=== PATIENT | female | born 1970 | race Caucasian/White ===

== ENCOUNTER 2017-02-09 20:45 | Emergency (ER) | payer BC ==
[~2017-02-09] VITALS: Ht 162.6 cm; Wt 78.9 kg
[2017-02-09 20:50] VITALS: BP 157/90
[2017-02-09] MEDS ORDERED: IBUP800T19 PO (20:59)
[2017-02-09] MEDS ORDERED: ONDANSETRON ODT 4 MG TAB.RAPDIS PO ONE (21:45)
[2017-02-09] MEDS ORDERED: START PACK - traMADol 1 STARTPACK TABLET PO ONE (21:45)
[2017-02-09] MEDS ORDERED: MORPHINE SULFATE 10 MG/ML SYRINGE. IM ONE (21:45)
[2017-02-09] MEDS ORDERED: AMOXICILLIN 500 MG CAPSULE PO ONE (21:45)
--- NOTE | 2017-02-10 00:45 | ED.ADGEN ---
Past History Past Medical History: Gallstones, Other Past Surgical History: Cholecystectomy, Hysterectomy, Tonsillectomy Alcohol Use: Occasionally Drug Use: None Adult General Chief Complaint Chief Complaint Dental pain HPI HPI Patient is a 6-year-old female presents with right upper anterior dental pain after cracking I was some tooth during dinner several hours ago. Patient rates pain 10 out of 10 and poorly controlled with ibuprofen. No other symptoms or complaints Review of Systems Review of Systems Review symptoms as per history of present illness Current Medications Current Medications Current Medications Medications (Trade) Dose Ordered Sig/Edin Start Time Stop Time Status Last Admin Dose Admin Amoxicillin (Amoxil) 500 mg 1X ONCE 02/09/17 21:45 02/09/17 21:46 DC 02/09/17 21:45 500 MG Morphine Sulfate (Morphine 10mg Syringe) 10 mg 1X ONCE 02/09/17 21:45 02/09/17 21:46 DC 02/09/17 21:45 10 MG Ondansetron HCl (Zofran Odt) 4 mg 1X ONCE 02/09/17 21:45 02/09/17 21:46 DC 02/09/17 21:45 4 MG Tramadol HCl (Starter Pack - Ultram) 1 startpack 1X ONCE 02/09/17 21:45 02/09/17 21:46 DC 02/09/17 21:45 1 STARTPACK Allergies Allergies Allergies Coded Allergies Type Severity Reaction Last Updated Verified No Known Drug Allergies 02/09/17 No Physical Exam Physical Exam Constitutional: Well developed, well nourished, no acute distress, non-toxic appearance. [] HENT: Normocephalic, atraumatic, bilateral external ears normal, oropharynx moist, right posterior was some tooth fracture. No bleeding or soft tissue swelling Eyes: PERRLA, EOMI, conjunctiva normal, no discharge. [] Neck: Normal range of motion, no tenderness, supple, no stridor. [] Cardiovascular:Heart rate regular rhythm, no murmur [] Lungs & Thorax: Bilateral breath sounds clear to auscultation [] Abdomen: Bowel sounds normal, soft, no tenderness, no masses, no pulsatile masses. [] Skin: Warm, dry, no erythema, no rash. [] Back: No tenderness, no CVA tenderness. [] Extremities: No tenderness, no cyanosis, no clubbing, ROM intact, no edema. [] Neurologic: Alert and oriented X 3, normal motor function, normal sensory function, no focal deficits noted. [] Psychologic: Affect normal, judgement normal, mood normal. [] Current Patient Data Vital Signs Vital Signs Date Time Temp Pulse Resp B/P (MAP) Pulse Ox O2 Delivery O2 Flow Rate FiO2 02/09/17 20:50 98.4 85 20 98 Room Air EKG EKG [] Radiology/Procedures Radiology/Procedures [] Course & Med Decision Making Course & Med Decision Making Pertinent Labs and Imaging studies reviewed. (See chart for details) [Pain addressed, first dose of antibiotics given. Patient with plans to follow- up with dentist early next week.] Final Impression Final Impression 1. [Dental pain] 2. Dental fracture Problems: Dragon Disclaimer Dragon Disclaimer This electronic medical record was generated, in whole or in part, using a voice recognition dictation system. FACUNDO RAHMAN DO February 10, 2017 00:45
== END 2017-02-09 21:37 | disposition home or self-care (01) ==
LOC: ER 20:45
DX: S02.5XXA Fracture of tooth (traumatic), initial encounter for closed fracture (principal); X58.XXXA Exposure to other specified factors, initial encounter; Y93.89 Activity, other specified; Y99.8 Other external cause status; Y92.89 Other specified places as the place of occurrence of the external cause
CPT/HCPCS: 96372; 99284; J2270; Q0162

== ENCOUNTER 2019-04-19 16:47 | Emergency (ER) | payer BC ==
[~2019-04-19] VITALS: Ht 162.6 cm; Wt 81.6 kg
[~2019-04-19 16:47] MED LIST: IBUP800T19 PO
[2019-04-19] MEDS ORDERED: ORPHENADRINE CITRATE 60 MG/2 ML VIAL. IM ONE (17:15)
[2019-04-19] MEDS ORDERED: KETOROLAC 60 MG/2 ML VIAL. IM ONE (17:15)
[2019-04-19] MEDS ORDERED: IOHEXOL 350 MG/ML 100 ML VIAL. IV ONE (17:30)
[2019-04-19] MEDS ORDERED: KETOROLAC 30 MG/ML VIAL. IV ONE (17:45)
--- NOTE | 2019-04-19 18:04 | PHYS DOC ---
Past History Past Medical History: Gallstones, Hypothyroid, TIA, Other (LONNIE JOE DO) Past Surgical History: Cholecystectomy, Hysterectomy, Tonsillectomy, Other (LONNIE JOE DO) Alcohol Use: Occasionally Drug Use: None (LONNIE JOE DO) Adult General Chief Complaint Chief Complaint: Neck Pain HPI HPI Patient is a 48-year-old female who has had a several day history of severe neck pain. She states is primarily on the left side of her neck rating up into her head and down into her left trapezius. She states today the pain in her neck is a little worse and now she is hearing a whooshing sound in her ear. She states her ear feels full. She states she has 7 kids and 13 grandkids and has some stress associated with that. Rest and ibuprofen have not helped her neck pain. She states this made worse with any movement.[] (LONNIE JOE DO) Review of Systems Review of Systems Constitutional: Denies fever or chills [] Eyes: Denies change in visual acuity, redness, or eye pain [] HENT: Denies nasal congestion or sore throat [] Respiratory: Denies cough or shortness of breath [] Cardiovascular: No additional information not addressed in HPI [] GI: Denies abdominal pain, nausea, vomiting, bloody stools or diarrhea [] : Denies dysuria or hematuria [] Musculoskeletal: Denies back pain or joint pain [] Integument: Denies rash or skin lesions [] Neurologic: Denies headache, focal weakness or sensory changes [] Endocrine: Denies polyuria or polydipsia [] All other systems were reviewed and found to be within normal limits, except as documented in this note. (LONNIE JOE DO) Current Medications Current Medications Current Medications Medications (Trade) Dose Ordered Sig/Edin Start Time Stop Time Status Last Admin Dose Admin Iohexol (Omnipaque 350 Mg/ml) 100 ml 1X ONCE 04/19/19 17:30 04/19/19 17:31 DC 04/19/19 17:43 100 ML Ketorolac Tromethamine (Toradol 30mg Vial) 30 mg 1X ONCE 04/19/19 17:45 04/19/19 17:46 DC Ketorolac Tromethamine (Toradol Im) 60 mg 1X ONCE 04/19/19 17:15 04/19/19 17:20 DC Orphenadrine Citrate (Norflex) 60 mg 1X ONCE 04/19/19 17:15 04/19/19 17:20 DC (LONNIE JOE DO) Allergies Allergies Allergies Coded Allergies Type Severity Reaction Last Updated Verified No Known Drug Allergies 02/09/17 No (LONNIE JOE DO) Physical Exam Physical Exam Constitutional: Well developed, well nourished, mild to moderate distress, non- toxic appearance. [] HENT: TMs appear normal[] Eyes: PERRLA, EOMI, conjunctiva normal, no discharge. [] Neck: Normal range of motion, no tenderness, supple, no stridor. [] Cardiovascular:Heart rate regular rhythm, no murmur [] Lungs & Thorax: Bilateral breath sounds clear to auscultation [] Abdomen: Bowel sounds normal, soft, no tenderness, no masses, no pulsatile masses. [] Skin: Warm, dry, no erythema, no rash. [] Back: She has left cervical spine paraspinal muscle spasm that radiates down into her trapezius with multiple trigger points at that location as well. She has restriction to side bending right and flexion.. [] Extremities: No tenderness, no cyanosis, no clubbing, ROM intact, no edema. [] Neurologic: Alert and oriented X 3, normal motor function, normal sensory function, no focal deficits noted. [] Psychologic: Anxious. [] (LONNIE JOE DO) Current Patient Data Vital Signs Vital Signs Date Time Temp Pulse Resp B/P (MAP) Pulse Ox O2 Delivery O2 Flow Rate FiO2 04/19/19 17:00 98.8 97 20 98 Room Air (LONNIE JOE DO) EKG EKG [] (LONNIE JOE DO) Radiology/Procedures Radiology/Procedures [] Impressions: REASON: Severe headache, blurred vision with light sensitivity, nausea PROCEDURE: CT ANGIOGRAPHY HEAD AND NECK Exam: CTA head and neck INDICATION: Severe headache, blurred vision TECHNIQUE: Sequential axial images through the head and neck obtained following the administration of 70 mL of Isovue 370 IV contrast. Sagittal and coronal reformatted images were reconstructed from the axial data and reviewed. Comparisons: None FINDINGS: CTA NECK: Visualized portions of the thoracic aorta are normal. There is standard three-vessel aortic arch anatomy. Right common carotid artery is patent without evidence of stenosis, occlusion or aneurysm. Mild calcified atherosclerotic plaque at the origin of the right internal carotid artery without significant stenosis. Otherwise, cervical segment of the right internal carotid artery is patent without evidence of stenosis, occlusion or aneurysm. Left common carotid artery has mild noncalcified atherosclerotic plaque at the distal aspect without significant stenosis. Cervical segment of the left internal carotid artery is patent without evidence of stenosis, occlusion or aneurysm. Right vertebral artery is patent without evidence of stenosis, occlusion or aneurysm. Left vertebral artery is patent without evidence of stenosis, occlusion or aneurysm. Postsurgical changes of right hemithyroidectomy. Otherwise, visualized cervical soft tissues are unremarkable. CTA HEAD: Mild calcified atherosclerotic plaque at the cavernous segment of the right internal carotid artery without significant stenosis. Right MCA is patent. Right TAQUERIA is patent. Mild calcified atherosclerotic plaque at the cavernous segment of the left internal carotid artery without significant stenosis. Left MCA is patent. Left TAQUERIA is patent. Basilar artery is patent without evidence of stenosis, occlusion or aneurysm. Major branch vessels arising off the basilar artery are patent proximally. cardiothoracic icu rn are patent bilaterally. Evaluation of the intracranial structures limited secondary to postcontrast technique. No large vascular territory infarction or hemorrhage or mass effect. Ventricular system and basal cisterns are well maintained. IMPRESSION: 1. Minimal calcified atherosclerotic plaque at the origin of the right internal carotid artery without significant stenosis. 2. Minimal noncalcified atherosclerotic plaque at the distal left common carotid artery without significant stenosis. 3. Minimal calcified atherosclerotic plaque at the cavernous segment of the internal carotid arteries bilaterally. (LONNIE JOE DO) Radiology/[place] [address] IMAGING REPORT Signed PATIENT: CATRINA VIRAMONTES ACCOUNT: [id number] : 1970 LOCATION: ER AGE: 48 SEX: F EXAM STATUS: REG ER ORD. PHYSICIAN: LONNIE JOE DO REASON: Severe headache, blurred vision with light sensitivity, nausea PROCEDURE: CT ANGIOGRAPHY HEAD AND NECK Exam: CTA head and neck INDICATION: Severe headache, blurred vision TECHNIQUE: Sequential axial images through the head and neck obtained following the administration of 70 mL of Isovue 370 IV contrast. Sagittal and coronal reformatted images were reconstructed from the axial data and reviewed. Comparisons: None FINDINGS: CTA NECK: Visualized portions of the thoracic aorta are normal. There is standard three-vessel aortic arch anatomy. Right common carotid artery is patent without evidence of stenosis, occlusion or aneurysm. Mild calcified atherosclerotic plaque at the origin of the right internal carotid artery without significant stenosis. Otherwise, cervical segment of the right internal carotid artery is patent without evidence of stenosis, occlusion or aneurysm. Left common carotid artery has mild noncalcified atherosclerotic plaque at the distal aspect without significant stenosis. Cervical segment of the left internal carotid artery is patent without evidence of stenosis, occlusion or aneurysm. Right vertebral artery is patent without evidence of stenosis, occlusion or aneurysm. Left vertebral artery is patent without evidence of stenosis, occlusion or aneurysm. Postsurgical changes of right hemithyroidectomy. Otherwise, visualized cervical soft tissues are unremarkable. CTA HEAD: Mild calcified atherosclerotic plaque at the cavernous segment of the right internal carotid artery without significant stenosis. Right MCA is patent. Right TAQUERIA is patent. Mild calcified atherosclerotic plaque at the cavernous segment of the left internal carotid artery without significant stenosis. Left MCA is patent. Left TAQUERIA is patent. Basilar artery is patent without evidence of stenosis, occlusion or aneurysm. Major branch vessels arising off the basilar artery are patent proximally. cardiothoracic icu rn are patent bilaterally. Evaluation of the intracranial structures limited secondary to postcontrast technique. No large vascular territory infarction or hemorrhage or mass effect. Ventricular system and basal cisterns are well maintained. IMPRESSION: 1. Minimal calcified atherosclerotic plaque at the origin of the right internal carotid artery without significant stenosis. 2. Minimal noncalcified atherosclerotic plaque at the distal left common carotid artery without significant stenosis. 3. Minimal calcified atherosclerotic plaque at the cavernous segment of the internal carotid arteries bilaterally. Exposure: One or more of the following in the visualized dose reduction techniques were utilized for this examination: 1. Automated exposure control 2. Adjustment of the MA and/or KV according to patient size 3. Use of iterative of reconstructive technique Electronically signed by: Vannessa Frederick MD (04/19/2019 6:13 PM) [facility] DICTATED AND SIGNED BY: VANNESSA FREDERICK MD DATE: 04/19/19 181 CC: LONNIE JOE DO; ALVARADO CARDOSO MD ~ (DASH VALDES MD) Course & Med Decision Making Course & Med Decision Making Pertinent Labs and Imaging studies reviewed. (See chart for details) [ED course: Evaluation reveals a 48-year-old female with likely cervical muscle strain however the symptoms that radiated up into her head and that noises that she's hearing in her ear cause concern for possible vertebral artery dissection. We'll go ahead and check a CTA of her head and neck to be sure that is not what were dealing with. I do not believe her symptoms have any relation to an ischemic stroke. I will turn the patient over to Dr. Dash Valdes to follow- up on the results of the scan. At 1800] (LONNIE JOE DO) Course & Med Decision Making Re-exam, pain appears to be localized to trapezius. Distal neurovascular intact.. Pt. declines labs or further evaluation. Pt. encourage to return if any concerns. Must follow up. (DASH VALDES MD) Dragon Disclaimer Dragon Disclaimer This electronic medical record was generated, in whole or in part, using a voice recognition dictation system. (LONNIE JOE DO) Departure Departure: Impression: Primary Impression: Acute cervical sprain Additional Impression: Hypertension Disposition: 01 HOME, SELF-CARE Condition: STABLE Referrals: ALVARADO CARDOSO MD (PCP) Scripts Cyclobenzaprine Hcl (CYCLOBENZAPRINE HCL) 10 Mg Tablet 10 MG PO TID PRN PRN for spasm, #30 TAB Prov: DASH VALDES MD 04/19/19 Hydrocodone/Ibuprofen (HYDROCODONE-IBUPROFEN 7.5-200 ) 1 Each Tablet 1 TAB PO PRN Q6HRS PRN for PAIN, #30 TAB 0 Refills Prov: DASH VALDES MD 04/19/19 Discharge Summary Visit Information Final Diagnosis Problems Medical Problems: (1) Acute cervical sprain Status: Acute (2) Hypertension Status: Acute (DASH VALDES MD) Final Diagnosis Problems Medical Problems: (1) Acute cervical sprain Status: Acute (2) Hypertension Status: Acute (LONNIE JOE DO) Brief Hospital Course Allergies Allergies Coded Allergies Type Severity Reaction Last Updated Verified No Known Drug Allergies 02/09/17 No Vital Signs Vital Signs Date Time Temp Pulse Resp B/P (MAP) Pulse Ox O2 Delivery O2 Flow Rate FiO2 04/19/19 19:31 72 20 161/68 (99) 100 Room Air 04/19/19 17:00 98.8 Brief Hospital Course Ms. Viramontes is a 48 old female who presented with Lt trapezius pain. (DASH VALDES MD) Allergies Allergies Coded Allergies Type Severity Reaction Last Updated Verified No Known Drug Allergies 02/09/17 No Vital Signs Vital Signs Date Time Temp Pulse Resp B/P (MAP) Pulse Ox O2 Delivery O2 Flow Rate FiO2 04/19/19 19:31 72 20 161/68 (99) 100 Room Air 04/19/19 17:00 98.8 Brief Hospital Course Ms. Viramontes is a 48 old [sex] who presented with [ ] (LONNIE JOE DO) Discharge Information Condition at Discharge: Improved, Stable Disposition/Orders: D/C to Home Dischare Medications Current Medications Ketorolac Tromethamine (Toradol Im) 60 mg 1X ONCE IM ; Start 04/19/19 at 17:15; Stop 04/19/19 at 17:20; Status DC Orphenadrine Citrate (Norflex) 60 mg 1X ONCE IM Last administered on 04/19/19at 18:25; Start 04/19/19 at 17:15; Stop 04/19/19 at 17:20; Status DC Iohexol (Omnipaque 350 Mg/ml) 100 ml 1X ONCE IV Last administered on 04/19/19at 17:43; Start 04/19/19 at 17:30; Stop 04/19/19 at 17:31; Status DC Ketorolac Tromethamine (Toradol 30mg Vial) 30 mg 1X ONCE IV Last administered on 04/19/19at 18:24; Start 04/19/19 at 17:45; Stop 04/19/19 at 17:46; Status DC Active Scripts Active Cyclobenzaprine Hcl 10 Mg Tablet 10 Mg PO TID PRN PRN Hydrocodone-Ibuprofen 7.5-200 (Hydrocodone/Ibuprofen) 1 Each Tablet 1 Tab PO PRN Q6HRS PRN Reported Ibuprofen 800 Mg Tablet 800 Mg PO PRN (DASH VALDES MD) Dischare Medications Current Medications Ketorolac Tromethamine (Toradol Im) 60 mg 1X ONCE IM ; Start 04/19/19 at 17:15; Stop 04/19/19 at 17:20; Status DC Orphenadrine Citrate (Norflex) 60 mg 1X ONCE IM Last administered on 04/19/19at 18:25; Start 04/19/19 at 17:15; Stop 04/19/19 at 17:20; Status DC Iohexol (Omnipaque 350 Mg/ml) 100 ml 1X ONCE IV Last administered on 04/19/19at 17:43; Start 04/19/19 at 17:30; Stop 04/19/19 at 17:31; Status DC Ketorolac Tromethamine (Toradol 30mg Vial) 30 mg 1X ONCE IV Last administered on 04/19/19at 18:24; Start 04/19/19 at 17:45; Stop 04/19/19 at 17:46; Status DC Active Scripts Active Cyclobenzaprine Hcl 10 Mg Tablet 10 Mg PO TID PRN PRN Hydrocodone-Ibuprofen 7.5-200 (Hydrocodone/Ibuprofen) 1 Each Tablet 1 Tab PO PRN Q6HRS PRN Reported Ibuprofen 800 Mg Tablet 800 Mg PO PRN (LONNIE JOE DO) Dragon Disclaimer This chart was dictated in whole or in part using Voice Recognition software in a busy, high-work load, and often noisy Emergency Department environment. It may contain unintended and wholly unrecognized errors or omissions. (DASH VALDES MD) Dragon Disclaimer This chart was dictated in whole or in part using Voice Recognition software in a busy, high-work load, and often noisy Emergency Department environment. It may contain unintended and wholly unrecognized errors or omissions. (LONNIE JOE DO) Problem Qualifiers Primary Impression: Acute cervical sprain Encounter type: initial encounter Qualified Codes: S13.9XXA - Sprain of joints and ligaments of unspecified parts of neck, initial encounter Additional Impression: Hypertension Hypertension type: essential hypertension Qualified Codes: I10 - Essential (primary) hypertension LONNIE JOE DO Apr 19, 2019 18:04 DASH VALDES MD Apr 19, 2019 18:57
--- NOTE | 2019-04-19 18:16 | RAD ---
Exam: CTA head and neck INDICATION: Severe headache, blurred vision TECHNIQUE: Sequential axial images through the head and neck obtained following the administration of 70 mL of Isovue 370 IV contrast. Sagittal and coronal reformatted images were reconstructed from the axial data and reviewed. Comparisons: None FINDINGS: CTA NECK: Visualized portions of the thoracic aorta are normal. There is standard three-vessel aortic arch anatomy. Right common carotid artery is patent without evidence of stenosis, occlusion or aneurysm. Mild calcified atherosclerotic plaque at the origin of the right internal carotid artery without significant stenosis. Otherwise, cervical segment of the right internal carotid artery is patent without evidence of stenosis, occlusion or aneurysm. Left common carotid artery has mild noncalcified atherosclerotic plaque at the distal aspect without significant stenosis. Cervical segment of the left internal carotid artery is patent without evidence of stenosis, occlusion or aneurysm. Right vertebral artery is patent without evidence of stenosis, occlusion or aneurysm. Left vertebral artery is patent without evidence of stenosis, occlusion or aneurysm. Postsurgical changes of right hemithyroidectomy. Otherwise, visualized cervical soft tissues are unremarkable. CTA HEAD: Mild calcified atherosclerotic plaque at the cavernous segment of the right internal carotid artery without significant stenosis. Right MCA is patent. Right TAQUERIA is patent. Mild calcified atherosclerotic plaque at the cavernous segment of the left internal carotid artery without significant stenosis. Left MCA is patent. Left TAQUERIA is patent. Basilar artery is patent without evidence of stenosis, occlusion or aneurysm. Major branch vessels arising off the basilar artery are patent proximally. general foundry worker are patent bilaterally. Evaluation of the intracranial structures limited secondary to postcontrast technique. No large vascular territory infarction or hemorrhage or mass effect. Ventricular system and basal cisterns are well maintained. IMPRESSION: 1. Minimal calcified atherosclerotic plaque at the origin of the right internal carotid artery without significant stenosis. 2. Minimal noncalcified atherosclerotic plaque at the distal left common carotid artery without significant stenosis. 3. Minimal calcified atherosclerotic plaque at the cavernous segment of the internal carotid arteries bilaterally. Exposure: One or more of the following in the visualized dose reduction techniques were utilized for this examination: 1. Automated exposure control 2. Adjustment of the MA and/or KV according to patient size 3. Use of iterative of reconstructive technique Electronically signed by: Vannessa Parish MD (04/19/2019 6:13 PM) [facility]
[2019-04-19] MEDS ORDERED: CYCL-331 PO (18:59)
[2019-04-19] MEDS ORDERED: HYDR-1179 PO (18:59)
[2019-04-19 19:31] VITALS: BP 161/68
== END 2019-04-19 20:20 | disposition home or self-care (01) ==
LOC: ER 16:47
DX: S13.4XXA Sprain of ligaments of cervical spine, initial encounter (principal); R51 Headache; I10 Essential (primary) hypertension; E03.9 Hypothyroidism, unspecified; Z86.73 Personal history of transient ischemic attack (TIA), and cerebral infarction without residual deficits; X58.XXXA Exposure to other specified factors, initial encounter; Y93.89 Activity, other specified; Y92.89 Other specified places as the place of occurrence of the external cause; Y99.8 Other external cause status
CPT/HCPCS: 70496; 70498; 96372; 96374; 99284; J1885; J2360; Q9967

== ENCOUNTER 2019-05-05 14:16 | Emergency (ER) | payer BC ==
[~2019-05-05] VITALS: Ht 162.6 cm; Wt 87.0 kg
[~2019-05-05 14:16] MED LIST changes: +CYCL-331 PO; +HYDR-1179 PO
[2019-05-05] MEDS ORDERED: ASPI-612 PO (14:34)
[2019-05-05] MEDS ORDERED: IV NORMAL SALINE 1,000ML 1,000 ML IV ONE (15:00)
--- NOTE | 2019-05-05 15:06 | PHYS DOC ---
Past History Past Medical History: TIA, Other (BEN ARREDONDO DO) Past Surgical History: Cholecystectomy, Hysterectomy, Tonsillectomy, Other (BEN ARREDONDO DO) Alcohol Use: Occasionally Drug Use: None (BEN ARREDONDO DO) Adult General Chief Complaint Chief Complaint: DIZZY/LIGHT HEADED HPI HPI Patient is a 48-year-old female who has been feeling dizzy for several months intermittently, worse over the past 3 days. Feels like "my equilibrium is off." No worsening with exertion. No head trauma. No weakness in the arms or legs. She notes some subjective fever and chills, has not taken her temperature at home. No nausea or vomiting. She feels a fullness in the anterior portion of her neck. She had a right upper dental pain approximately 3 weeks ago without significant improvement. She was not started on any antibiotics at that time. She has not followed up with anyone since then. Nothing seems to make any of these symptoms better or worse. She has a history of a TIA and is currently on a baby aspirin a day.[] (BEN ARREDONDO DO) Review of Systems Review of Systems Constitutional: See history of present illness[] Eyes: Denies change in visual acuity, redness, or eye pain [] HENT: Denies nasal congestion or sore throat [] Respiratory: Denies cough or shortness of breath [] Cardiovascular: No additional information not addressed in HPI [] GI: Denies abdominal pain, nausea, vomiting, bloody stools or diarrhea [] : Denies dysuria or hematuria [] Musculoskeletal: Denies back pain or joint pain [] Integument: Denies rash or skin lesions [] Neurologic: Denies headache, focal weakness or sensory changes [] Endocrine: Denies polyuria or polydipsia [] All other systems were reviewed and found to be within normal limits, except as documented in this note. (BEN ARREDONDO DO) Allergies Allergies Allergies Coded Allergies Type Severity Reaction Last Updated Verified No Known Drug Allergies 05/05/19 No (BEN ARREDONDO DO) Physical Exam Physical Exam Constitutional: Well developed, well nourished, no acute distress, non-toxic appearance. [] HENT: Normocephalic, atraumatic, bilateral external ears normal, oropharynx moist, no oral exudates, no evidence of Gomez angina, uvula is midline, Nose normal. [] Eyes: PERRLA, EOMI, conjunctiva normal, no discharge. [] Neck: Normal range of motion, no tenderness, supple, no stridor. No significant cervical lymphadenopathy, full active range of motion without any nuchal rigidity [] Cardiovascular:Heart rate regular rhythm, no murmur [] Lungs & Thorax: Bilateral breath sounds clear to auscultation [] Abdomen: Bowel sounds normal, soft, no tenderness, no masses, no pulsatile masses. [] Skin: Warm, dry, no erythema, no rash. [] Back: No tenderness, no CVA tenderness. [] Extremities: No tenderness, no cyanosis, no clubbing, ROM intact, no edema. [] Neurologic: Alert and oriented X 3, normal motor function, normal sensory function, no focal deficits noted. [] Psychologic: Affect normal, judgement normal, mood normal. [] ([facility]) Current Patient Data Vital Signs Vital Signs Date Time Temp Pulse Resp B/P (MAP) Pulse Ox O2 Delivery O2 Flow Rate FiO2 05/05/19 14:27 98.8 99 20 100 Room Air ([facility]) EKG EKG [] ([facility]) Radiology/Procedures Radiology/Procedures PROCEDURE: CT HEAD WO CONTRAST EXAM: Head CT without contrast. HISTORY: Weakness and dizziness. TECHNIQUE: Computed tomographic images of the head were obtained without contrast. *One or more of the following individualized dose reduction techniques were utilized for this examination: 1. Automated exposure control. 2. Adjustment of the mA and/or kV according to patient size. 3. Use of iterative reconstruction technique. COMPARISON: None. FINDINGS: There is no acute or subacute extra-axial or intraparenchymal hemorrhage. There is no mass effect or midline shift. There is no hydrocephalus. There is a possible tiny chronic lacunar infarct within the left caudate nucleus. The ukuv-[id number]-eflbx matter differentiation pattern is intact. The visualized portions of the orbits, paranasal sinuses and mastoid air cells are unremarkable. No suspicious calvarial lesion is seen. IMPRESSION: 1. No acute intracranial finding. Note is made that MRI is more sensitive for acute infarction. 2. Possible tiny chronic lacunar infarct within the left caudate nucleus. PROCEDURE: CT SOFT TISSUE NECK W/CONTRAST CT SOFT TISSUE NECK W/CONTRAST History: Fullness anterior neck. Fever. Technique: CT imaging was performed of the neck soft tissues with contrast. Coronal and sagittal reconstructions were performed. Contrast: 75 mL Omnipaque 300 IV contrast. Exposure: One or more of the following individualized dose reduction techniques were utilized for this examination: 1. Automated exposure control 2. Adjustment of the mA and/or kV according to patient size 3. Use of iterative reconstruction technique. Comparison: None Findings: Normal appearance of the bilateral submandibular and parotid glands. Prior right thyroidectomy. No pathologic lymphadenopathy. Punctate 2 mm left apical nodule (series 2 image #60), likely benign. Recommend comparison with prior imaging studies. If patient is high risk recommend one-year follow-up. Imaged paranasal sinuses and mastoid air cells are clear. Imaged orbits and intracranial contents are unremarkable. Impression: 1. No acute pathology within the neck soft tissues. 2. Prior right thyroidectomy. 3. Punctate left apical pulmonary nodule, as described.[] (BEN ARREDONDO DO) Course & Med Decision Making Course & Med Decision Making Pertinent Labs and Imaging studies reviewed. (See chart for details) ED course: Patient arrived, was placed in bed, and tolerated exam well. IV access was established, she was given IV fluids, and transported to and from radiology with any complications. After the return of the laboratory and imaging studies, these were discussed with the patient and family who voiced understanding. Consultation was made with the hospitalist service for transfer to [facility] given their greater depth of resources such as MRI scanning capability. The hospitalist graciously accepted. Patient was transferred in improved condition. Medical decision making: Patient does not appear to have an acute stroke syndrome necessitating thrombolytics. Symptoms have been going on for the past 3 days. The dizziness may be related to a now subacute issue within the caudate nucleus given the CT findings. She is being transferred for further evaluation and treatment. There is no evidence of a soft tissue mass or obstruction within the neck. No evidence of dehydration, significant electrolyte abnormality, nor acute infection.[] (BEN ARREDONDO DO) Course & Med Decision Making While awaiting transfer to [facility], patient reporting headache. Patient given 1 time dose of Ketorlac for pain control regarding headache. Labs and CT imaging reviewed prior to order placement. Plan for transfer continued. (EFRAIN TIRADO DO) Dragon Disclaimer Dragon Disclaimer This electronic medical record was generated, in whole or in part, using a voice recognition dictation system. (BEN ARREDONDO DO) Departure Departure: Impression: Primary Impression: Dizziness Additional Impression: Hx-TIA (transient ischemic attack) Disposition: 05 TRANSFER OTHER Condition: STABLE Referrals: MARYJANE CARDOSO (PCP) Problem Qualifiers BEN ARREDONDO DO May 05, 2019 15:06 EFRAIN TIRADO DO May 06, 2019 00:32
[2019-05-05] MEDS ORDERED: IOHEXOL 300 MG/ML 75 ML VIAL. IV ONE (15:15)
[2019-05-05 15:31] LABS: COLOR,URINE YELLOW
[2019-05-05 15:32] LABS: BILIRUBIN,URINE NEG (NEG); CLARITY,URINE CLEAR; GLUCOSE,URINE NEG (NEG); NITRITE,URINE NEG (NEG); RBC,URINE OCC /HPF (0-2); UROBILINOGEN,URINE 0.2 mg/dL (0.2 mg/dL)
[2019-05-05 15:33] LABS: BACTERIA,URINE FEW /HPF (0-FEW); SQUAMOUS EPITHELIAL CELL,UR FEW /LPF
[2019-05-05 15:38] LABS: U PREG PATIENT NEGATIVE (NEG)
[2019-05-05 15:43] LABS: BASO % 0 % (0-3); EOS # 0.1 x10^3/uL (0.0-0.7); EOS % 2 % (0-3); HEMATOCRIT 40.8 % (36.0-47.0); LYMPH # 2.2 x10^3/uL (1.0-4.8); LYMPH % 39 % (24-48); MEAN CORPUSCULAR HEMOGLOBIN 31 pg (25-35); MEAN CORPUSCULAR HGB CONC 34 g/dL (31-37); MEAN CORPUSCULAR VOLUME 89 fL (79-100); MONO # 0.3 x10^3/uL (0.0-1.1); MONO % 6 % (0-9); NEUT # 3.1 x10^3uL (1.8-7.7); NEUT % 53 % (31-73); PLATELET COUNT 232 x10^3/uL (140-400); RED BLOOD COUNT 4.58 x10^6/uL (3.50-5.40); RED CELL DISTRIBUTION WIDTH 12.8 % (11.5-14.5); WHITE BLOOD COUNT 5.7 x10^3/uL (4.0-11.0)
[2019-05-05 15:48] LABS: ALBUMIN 4.3 g/dL (3.4-5.0); ALBUMIN/GLOBULIN RATIO 1.2 (1.0-1.7); CALCIUM 9.8 mg/dL (8.5-10.1); CREATININE 0.8 mg/dL (0.6-1.0); GFR 76.9; POTASSIUM 4.4 mmol/L (3.5-5.1); TOTAL BILIRUBIN 0.4 mg/dL (0.2-1.0); TOTAL PROTEIN 7.8 g/dL (6.4-8.2)
--- NOTE | 2019-05-05 15:54 | RAD ---
EXAM: Head CT without contrast. HISTORY: Weakness and dizziness. TECHNIQUE: Computed tomographic images of the head were obtained without contrast. *One or more of the following individualized dose reduction techniques were utilized for this examination: 1. Automated exposure control. 2. Adjustment of the mA and/or kV according to patient size. 3. Use of iterative reconstruction technique. COMPARISON: None. FINDINGS: There is no acute or subacute extra-axial or intraparenchymal hemorrhage. There is no mass effect or midline shift. There is no hydrocephalus. There is a possible tiny chronic lacunar infarct within the left caudate nucleus. The iglv-hyjqn-sfylc matter differentiation pattern is intact. The visualized portions of the orbits, paranasal sinuses and mastoid air cells are unremarkable. No suspicious calvarial lesion is seen. IMPRESSION: 1. No acute intracranial finding. Note is made that MRI is more sensitive for acute infarction. 2. Possible tiny chronic lacunar infarct within the left caudate nucleus. Electronically signed by: Misti Laguna MD (05/05/2019 3:51 PM) [id number]
--- NOTE | 2019-05-05 16:09 | RAD ---
CT SOFT TISSUE NECK W/CONTRAST History: Fullness anterior neck. Fever. Technique: CT imaging was performed of the neck soft tissues with contrast. Coronal and sagittal reconstructions were performed. Contrast: 75 mL Omnipaque 300 IV contrast. Exposure: One or more of the following individualized dose reduction techniques were utilized for this examination: 1. Automated exposure control 2. Adjustment of the mA and/or kV according to patient size 3. Use of iterative reconstruction technique. Comparison: None Findings: Normal appearance of the bilateral submandibular and parotid glands. Prior right thyroidectomy. No pathologic lymphadenopathy. Punctate 2 mm left apical nodule (series 2 image #60), likely benign. Recommend comparison with prior imaging studies. If patient is high risk recommend one-year follow-up. Imaged paranasal sinuses and mastoid air cells are clear. Imaged orbits and intracranial contents are unremarkable. Impression: 1. No acute pathology within the neck soft tissues. 2. Prior right thyroidectomy. 3. Punctate left apical pulmonary nodule, as described. Electronically signed by: Jarrod Galvan DO (05/05/2019 4:07 PM) [id number]
--- NOTE | 2019-05-05 17:13 | EKG ---
[address] [address] Test Date: 2019-05-05 Test Time: 15:11:51 Pat Name: CATRINA VIRAMONTES Department: Room: Gender: F [employer] Technician: : 1970 Requested By: BEN ARREDONDO Order Number: [id number] Reading MD: Rafy Benedict Measurements Intervals [place] Rate: 72 P: 39 NH: 152 QRS: 34 QRSD: 96 T: 37 QT: 384 QTc: 422 Interpretive Statements SINUS RHYTHM NONSPECIFIC ST-T WAVE CHANGES. Electronically Signed On 05-09-2019 9:57:29 CDT by Rafy Benedict
[2019-05-05] MEDS ORDERED: KETOROLAC 15 MG/ML VIAL. IV ONE (19:15)
[2019-05-05 19:29] VITALS: BP 154/82
== END 2019-05-05 20:00 | disposition short-term general hospital (02) ==
LOC: ER 14:16
DX: R42 Dizziness and giddiness (principal); K08.89 Other specified disorders of teeth and supporting structures; Z86.73 Personal history of transient ischemic attack (TIA), and cerebral infarction without residual deficits
CPT/HCPCS: 36415; 70450; 70491; 80053; 81001; 81025; 84484; 85025; 85610; 87040; 93005; 96361; 96374; 99285; J1885; Q9967; J7030

== ENCOUNTER 2020-06-10 16:31 | Emergency (ER) | payer BC ==
[~2020-06-10] VITALS: Ht 162.6 cm; Wt 89.1 kg
[~2020-06-10 16:31] MED LIST changes: +ASPI-889 PO
[2020-06-10 16:34] VITALS: BP 113/71
--- NOTE | 2020-06-10 16:54 | PHYS DOC ---
Past History Past Medical History: High Cholesterol, Hypertension, Kidney Stones, TIA, UTI, Other Past Surgical History: Cholecystectomy, Hysterectomy, Tonsillectomy, Other Alcohol Use: Occasionally Drug Use: None General Adult EDM: Chief Complaint: FLANK PAIN HPI: HPI: The history was obtained from the patient. Patient is a 49-year-old female with PMH hypertension, hyperlipidemia, partial hysterectomy, cholecystectomy who presents with a chief complaint of left flank pain. Patient states she had left flank pain that began after she woke up this morning. States the pain is been constant in nature. She describes a colicky-like pain. States pain is aching in nature. She states it is difficult to find a position of comfort. She notes that [facility] who encouraged her to report to the emergency department. Denies any dysuria or hematuria. Denies any increased urge to void. Denies vomiting but notes mild nausea. Has tried Tylenol at home for the pain with no relief. Denies syncope. Denies vaginal bleeding or discharge. Denies any changes to her stool caliber or consistency. Denies any tobacco or recreational drug use. Denies any history of kidney stone in the past. Denies any overuse injury or trauma. No other complaints. Patient denies any urinary retention, stool incontinence, saddle anesthesia, history of IV drug use, or history of cancer. Review of Systems: Review of Systems: Constitutional: Denies fever or chills Eyes: Denies change in visual acuity HENT: Denies nasal congestion or sore throat Respiratory: Denies cough or shortness of breath Cardiovascular: Denies chest pain or edema GI: Denies abdominal pain, nausea, vomiting, bloody stools or diarrhea : Positive for flank pain Musculoskeletal: Denies back pain or joint pain Integument: Denies rash Neurologic: Denies headache, focal weakness or sensory changes Endocrine: Denies polyuria or polydipsia Lymphatic: Denies swollen glands Psychiatric: Denies depression or anxiety Heart Score: Risk Factors: Risk Factors: DM, Current or recent (<one month) smoker, HTN, HLP, family history of CAD, obesity. Risk Scores: Score 0 - 3: 2.5% MACE over next 6 weeks - Discharge Home Score 4 - 6: 20.3% MACE over next 6 weeks - Admit for Clinical Observation Score 7 - 10: 72.7% MACE over next 6 weeks - Early Invasive Strategies Current Medications: Current Meds: Current Medications Medications (Trade) Dose Ordered Sig/Edin Start Time Stop Time Status Last Admin Dose Admin Ketorolac Tromethamine (Toradol 15mg Vial) 15 mg 1X ONCE 06/10/20 17:00 06/10/20 17:01 UNV Morphine Sulfate (Morphine 4mg Syringe) 4 mg 1X ONCE 06/10/20 17:00 06/10/20 17:01 Ondansetron HCl (Zofran) 4 mg 1X ONCE 06/10/20 17:00 06/10/20 17:01 Allergies: Allergies: Allergies Coded Allergies Type Severity Reaction Last Updated Verified No Known Drug Allergies 05/05/19 No Physical Exam: PE: Constitutional: Well developed, well nourished, no acute distress, non-toxic appearance. [] HENT: Normocephalic, atraumatic, bilateral external ears normal, oropharynx moist, no oral exudates, nose normal. [] Eyes: PERRLA, EOMI, conjunctiva normal, no discharge. [] Neck: Normal range of motion, no tenderness, supple, no stridor. [] Cardiovascular:Heart rate regular rhythm, no murmur [] Lungs & Thorax: Bilateral breath sounds clear to auscultation [] Abdomen: soft, no tenderness, no masses, no pulsatile masses. Mild left flank pain Skin: Warm, dry, no erythema, no rash. [] Back: No tenderness, no CVA tenderness. [] Extremities: No tenderness, no cyanosis, no clubbing, ROM intact, no edema. [] Neurologic: Alert and oriented X 3, normal motor function, normal sensory function, no focal deficits noted. [] Psychologic: Affect normal, judgement normal, mood normal. [] Current Patient Data: Labs: Laboratory Tests Test 06/10/20 16:41 06/10/20 17:12 Urine Collection Type Unknown Urine Color Yellow Urine Clarity Clear Urine pH 5.5 Urine Specific [place] 1.020 Urine Protein Neg Urine Glucose (UA) Neg mg/dL Urine Ketones (Stick) Neg mg/dL Urine Blood Small Urine Nitrite Neg Urine Bilirubin Neg Urine Urobilinogen Dipstick 0.2 mg/dL Urine Leukocyte Esterase Neg Urine RBC Rare /HPF Urine WBC 0 /HPF Urine Squamous Epithelial Cells Occ /LPF Urine Bacteria 0 /HPF Urine Mucus Slight /LPF White Blood Count 6.1 x10^3/uL Red Blood Count 4.49 x10^6/uL Hemoglobin 14.0 g/dL Hematocrit 40.5 % Mean Corpuscular Volume 90 fL Mean Corpuscular Hemoglobin 31 pg Mean Corpuscular Hemoglobin Concent 35 g/dL Red Cell Distribution Width 12.6 % Platelet Count 236 x10^3/uL Neutrophils (%) (Auto) 50 % Lymphocytes (%) (Auto) 41 % Monocytes (%) (Auto) 6 % Eosinophils (%) (Auto) 2 % Basophils (%) (Auto) 0 % Neutrophils # (Auto) 3.0 x10^3uL Lymphocytes # (Auto) 2.5 x10^3/uL Monocytes # (Auto) 0.4 x10^3/uL Eosinophils # (Auto) 0.1 x10^3/uL Basophils # (Auto) 0.0 x10^3/uL Sodium Level 136 mmol/L Potassium Level 3.8 mmol/L Chloride Level 101 mmol/L Carbon Dioxide Level 27 mmol/L Anion Gap 8 Blood Urea Nitrogen 18 mg/dL Creatinine 0.9 mg/dL Estimated GFR (Cockcroft-Gault) 66.8 Glucose Level 109 mg/dL Calcium Level 9.5 mg/dL Current Medications Medications (Trade) Dose Ordered Sig/Edin Route PRN Reason Start Time Stop Time Status Last Admin Dose Admin Morphine Sulfate (Morphine 4mg Syringe) 4 mg 1X ONCE IV 06/10/20 17:00 06/10/20 17:01 DC 06/10/20 17:30 Ondansetron HCl (Zofran) 4 mg 1X ONCE IVP 06/10/20 17:00 06/10/20 17:01 DC 06/10/20 17:24 Ketorolac Tromethamine (Toradol 15mg Vial) 15 mg 1X ONCE IVP 06/10/20 17:00 06/10/20 17:01 DC 06/10/20 17:25 Vital Signs: Vital Signs Date Time Temp Pulse Resp B/P (MAP) Pulse Ox O2 Delivery O2 Flow Rate FiO2 06/10/20 16:34 97.3 85 20 113/71 (85) 100 EKG: EKG: [] Radiology/Procedures: Radiology/Procedures: [address] [address] IMAGING REPORT Signed PATIENT: DICE,CATRINA F ACCOUNT: [id number] : 1970 LOCATION: ER AGE: 49 SEX: F EXAM STATUS: REG ER ORD. PHYSICIAN: JONH BELTRAN DO REASON: L flank pain PROCEDURE: CT ABDOMEN PELVIS WO CONTRAST Examination: CT ABDOMEN PELVIS WO CONTRAST History: Reason: L flank pain / Spl. Instructions: / History: Comparison/Correlation: None Findings: Axial images of the abdomen and pelvis were obtained without contrast. Sagittal and coronal reformatted images were provided. Visualized lung bases are clear. Small hiatal hernia is present. Cholecystectomy noted. Liver, spleen, pancreas, adrenal glands, and the appendix are normal. Minimal diverticulosis is present. No inflammation seen. No radiopaque collecting system calculi. Urinary bladder is unremarkable. No enlarged abdominal or pelvic lymph nodes. No ascites or pelvic free fluid. Hysterectomy noted. Significant L5-S1 disc space narrowing is present. Right adnexal cyst with a septation is present measuring 4.7 cm longitudinal by 3.5 posterior by 3.1 cm transverse. Left adnexal follicle measuring up to 2.0 cm diameter is present. Impression: No radiopaque collecting system calculi or evidence of collecting system obstruction. Minimal diverticulosis without acute inflammation. Right adnexal cyst with a septation. Consider ultrasound follow-up to assess resolution on nonemergent basis in 16-20 weeks. Small left adnexal follicle probably physiologic. PQRS Compliance Statement: One or more of the following individualized dose reduction techniques were utilized for this examination: 1. Automated exposure control 2. Adjustment of the mA and/or kV according to patient size 3. Use of iterative reconstruction technique Electronically signed by: Ean Bauer MD (06/10/2020 5:18 PM) [id number] DICTATED AND SIGNED BY: EAN BAUER MD DATE: 06/10/201717 CC: ALESSANDRA CHAVEZ; JONH BELTRAN DO ~ [] Course & Med Decision Making: Course & Med Decision Making Pertinent Labs and Imaging studies reviewed. (See chart for details) [] Patient is a 49-year-old female who presents with chief complaint of left flank pain that began earlier today. She notes it is difficult to find a position of comfort. Initial vital signs unremarkable. Exam noted above. Urinalysis shows no evidence of infection. Microscopic hematuria noted. CT imaging reveals no obvious ureterolithiasis. Remainder of labs including kidney function have been unremarkable. The exact cause of her symptoms are unclear at this time. CT meeting did note an incidental right adnexal cyst. Patient was notified of this and instructed to have follow-up with her primary care physician. Potentially the patient could be experiencing issues such as but not limited to cystitis versus recently passed kidney stone. On repeat examination her symptoms are well controlled. She has tolerated p.o. Overall I do feel she is appropriate for discharge home with strict 12 to 24-hour return precautions. Ultrasound to be deferred as the patient is declining this and I have low suspicion for ovarian etiology given she does have a history of left- sided hysterectomy with salpingectomy she reports. Furthermore she denies any vaginal bleeding or discharge therefore pelvic exam be deferred. Patient is agreeable to this plan. She was instructed to follow-up with her primary care physician as well the next 2 to 3 days. Stable for discharge home. Dragon Disclaimer: Jg Disclaimer: This electronic medical record was generated, in whole or in part, using a voice recognition dictation system. Departure Departure: Impression: Primary Impression: Adnexal cyst Additional Impression: Left flank pain Disposition: 01 HOME/RESIDENCE PRIOR TO ADM Condition: STABLE Referrals: ALESSANDRA CHAVEZ (PCP) Additional Instructions: Please return the emergency department in 12 to 24 hours should her symptoms not improve or worsen. Discharge Abdominal Pain Re-Check Precautions: I'm unsure of the specific cause of your abdominal pain. However, at this point I feel that you are low risk for a life threatening emergency and that discharge from the Emergency Department is safe. There is a very small possibility that you are just too early in your clinical course for our physical exam/labs/imaging to ascertain whether or not you have an emergent condition that could potentially cause permanent disability or be life threatening. As such, it is very important that you follow up with your primary doctor or return to the Emergency Department in 12-24 hours for re-assessment and further evaluation if clinically indicated. If you develop new or worsening symptoms then you should return to the Emergency Department immediately. Home Care Instructions: Abdominal Pain Many things may cause abdominal pain. Your ER visit might not show the exact reason you are having pain. In some cases, additional time is needed to determine if the cause is serious. Therefore you may be told to go home and watch for any changes or worsening in your condition. Before that, we may not know if you need more testing, or if hospitalization or surgery is necessary. If its not something serious, the pain may go away without treatment or get better with simple things like avoiding certain foods or medications. In the ER, your doctor asks you questions, examines you and in some cases, may order tests. These help doctors decide if the pain is from something serious. Tests are not always done and may not provide a definite answer. There can still be a problem, even with normal test results. Abdominal pain may be caused by something serious (like appendicitis), which is not obvious right away. Because of this, another checkup is needed to make sure you are OK. It is VERY IMPORTANT to follow up for a repeat exam, especially if you have any symptoms that are not going away or are getting worse. We recommend that you RETURN TO THE EMERGENCY ROOM IN 8-12 HOURS to be rechecked. If you cannot, you may follow up with your primary care doctor or clinic. It is important that you follow all of the instructions below. RETURN TO THE EMERGENCY ROOM IMMEDIATELY IF: The pain does not go away or gets worse. You have a fever. You keep throwing up and cannot keep anything down. You pass bloody or black stools. You develop new symptoms. HOME CARE INSTRUCTIONS Come back to the ER (or see your doctor) in 8-12 hours. DO NOT take laxatives unless directed by your doctor. Avoid the use of alcohol Take pain medicine only as directed by your doctor. Only take [id number] or prescription medicine as directed by your doctor. Try a clear liquid diet (broth, tea, jello, water) for the next 12-24 hours. Slowly move to a bland diet as tolerated. Do not eat greasy, fatty or spicy foods. Once you start getting better, go back to a normal, healthy diet, slowly over a few days. DISCHARGE PT INSTRUCTIONS: YOU HAVE BEEN EVALUATED FOR ABDOMINAL PAIN. HOWEVER, WE ARE UNABLE TO PROVIDE A DEFINITE CAUSE OF YOUR SYMPTOMS. EVEN THOUGH YOUR TESTS MAY HAVE BEEN NORMAL, YOU STILL COULD HAVE A SERIOUS CAUSE FOR YOUR ABDOMINAL PAIN, INCLUDING APPENDICITIS. THE BEST TEST TO DETERMINE IF YOU HAVE A SERIOUS CAUSE IS RE-EXAMINATION OVER TIME. WE USED TO ADMIT PATIENTS TO THE HOSPITAL FOR THIS, BUT CAN NOW ALLOW YOU TO GO HOME, & RETURN TO OUR ER THE NEXT DAY FOR RE- EXAMINATION. THUS, WE WOULD LIKE YOU TO RETURN TO OUR ER TOMORROW FOR YOUR RE- EVALUATION. (IF YOUR SYMPTOMS HAVE GONE AWAY, THEN YOU DO NOT NEED TO RETURN.) IF YOUR SYMPTOMS GET WORSE BETWEEN NOW & THEN, YOU SHOULD RETURN IMMEDIATELY & NOT WAIT UNTIL TOMORROW. SYMPTOMS TO LOOK FOR WORSENING PAIN, HIGH FEVER, PERSISTENT VOMITING [NOT CONTROLLED BY MEDICINE], AND/OR OVERALL WORSENING OF YOUR CONDITION. Scripts Ondansetron Hcl (ZOFRAN) 8 Mg Tablet 4 MG PO TID PRN PRN for NAUSEA, #9 TAB Prov: JONH BELTRAN DO 06/10/20 Ibuprofen (IBUPROFEN) 200 Mg Tablet 600 MG PO QIDPRN PRN for PAIN, #15 TAB Prov: JONH BELTRAN DO 06/10/20 Justification of Admission: Justification of Admission: Justification of Admission Dx: N/A JONH BELTRAN DO Jun 10, 2020 16:54
[2020-06-10] MEDS ORDERED: MORPHINE SULFATE 4 MG/ML DISP.SYRIN. IV ONE (17:00)
[2020-06-10] MEDS ORDERED: KETOROLAC 15 MG/ML VIAL. IVP ONE (17:00)
[2020-06-10] MEDS ORDERED: ONDANSETRON PF 4 MG/2 ML VIAL. IVP ONE (17:00)
--- NOTE | 2020-06-10 17:21 | RAD ---
Examination: CT ABDOMEN PELVIS WO CONTRAST History: Reason: L flank pain / Spl. Instructions: / History: Comparison/Correlation: None Findings: Axial images of the abdomen and pelvis were obtained without contrast. Sagittal and coronal reformatted images were provided. Visualized lung bases are clear. Small hiatal hernia is present. Cholecystectomy noted. Liver, spleen, pancreas, adrenal glands, and the appendix are normal. Minimal diverticulosis is present. No inflammation seen. No radiopaque collecting system calculi. Urinary bladder is unremarkable. No enlarged abdominal or pelvic lymph nodes. No ascites or pelvic free fluid. Hysterectomy noted. Significant L5-S1 disc space narrowing is present. Right adnexal cyst with a septation is present measuring 4.7 cm longitudinal by 3.5 posterior by 3.1 cm transverse. Left adnexal follicle measuring up to 2.0 cm diameter is present. Impression: No radiopaque collecting system calculi or evidence of collecting system obstruction. Minimal diverticulosis without acute inflammation. Right adnexal cyst with a septation. Consider ultrasound follow-up to assess resolution on nonemergent basis in 16-20 weeks. Small left adnexal follicle probably physiologic. PQRS Compliance Statement: One or more of the following individualized dose reduction techniques were utilized for this examination: 1. Automated exposure control 2. Adjustment of the mA and/or kV according to patient size 3. Use of iterative reconstruction technique Electronically signed by: Ean Burnette MD (06/10/2020 5:18 PM) [id number]
[2020-06-10 17:28] LABS: BILIRUBIN,URINE NEG (NEG); CLARITY,URINE CLEAR; COLOR,URINE YELLOW; GLUCOSE,URINE NEG (NEG); NITRITE,URINE NEG (NEG); RBC,URINE RARE /HPF (0-2); UROBILINOGEN,URINE 0.2 mg/dL (0.2 mg/dL)
[2020-06-10 17:29] LABS: BACTERIA,URINE 0 /HPF (0-FEW); SQUAMOUS EPITHELIAL CELL,UR OCC /LPF; WBC,URINE 0 /HPF (0-4)
[2020-06-10 17:34] LABS: BASO % 0 % (0-3); EOS # 0.1 x10^3/uL (0.0-0.7); EOS % 2 % (0-3); HEMATOCRIT 40.5 % (36.0-47.0); LYMPH # 2.5 x10^3/uL (1.0-4.8); LYMPH % 41 % (24-48); MEAN CORPUSCULAR HEMOGLOBIN 31 pg (25-35); MEAN CORPUSCULAR HGB CONC 35 g/dL (31-37); MEAN CORPUSCULAR VOLUME 90 fL (79-100); MONO # 0.4 x10^3/uL (0.0-1.1); MONO % 6 % (0-9); NEUT % 50 % (31-73); PLATELET COUNT 236 x10^3/uL (140-400); RED BLOOD COUNT 4.49 x10^6/uL (3.50-5.40); RED CELL DISTRIBUTION WIDTH 12.6 % (11.5-14.5); WHITE BLOOD COUNT 6.1 x10^3/uL (4.0-11.0)
[2020-06-10 17:44] LABS: CALCIUM 9.5 mg/dL (8.5-10.1); CREATININE 0.9 mg/dL (0.6-1.0); GFR 66.8; POTASSIUM 3.8 mmol/L (3.5-5.1)
[2020-06-10] MEDS ORDERED: ONDA8TAB9 PO (17:47)
[2020-06-10] MEDS ORDERED: IBUP-1673 PO (17:47)
== END 2020-06-10 18:10 | disposition home or self-care (01) ==
LOC: ER 16:31
DX: N83.8 Other noninflammatory disorders of ovary, fallopian tube and broad ligament (principal); R10.9 Unspecified abdominal pain; E78.00 Pure hypercholesterolemia, unspecified; I10 Essential (primary) hypertension; Z87.442 Personal history of urinary calculi; Z87.440 Personal history of urinary (tract) infections; Z90.89 Acquired absence of other organs; Z90.710 Acquired absence of both cervix and uterus
CPT/HCPCS: 36415; 74176; 80048; 81001; 85025; 96374; 96375; 99284; J1885; J2270; J2405

== ENCOUNTER 2020-07-05 15:20 | Emergency (ER) | payer BC ==
[~2020-07-05] VITALS: Ht 162.6 cm; Wt 89.0 kg
[~2020-07-05 15:20] MED LIST changes: +IBUP-1673 PO; +ONDA8TAB9 PO
--- NOTE | 2020-07-05 15:53 | EKG ---
[address] [address] Test Date: 2020-07-05 Test Time: 15:32:34 Pat Name: CATRINA VIRAMONTES Department: Room: Gender: F Vp Cardiovascular: SHREYAS : 1970 Requested By: FACUNDO PERRIN Order Number: [id number] Reading MD: Measurements Intervals [place] Rate: 108 P: 49 TX: 130 QRS: 59 QRSD: 98 T: 5 QT: 320 QTc: 432 Interpretive Statements SINUS TACHYCARDIA R-S TRANSITION ZONE IN V LEADS DISPLACED TO THE LEFT T ABNORMALITY IN INFERIOR LEADS ABNORMAL ECG RI6.02 No previous ECG available for comparison
--- NOTE | 2020-07-05 16:17 | PHYS DOC ---
Past History Past Medical History: High Cholesterol, Hypertension, Kidney Stones, TIA, UTI, Other Past Surgical History: Cholecystectomy, Hysterectomy, Tonsillectomy, Other Alcohol Use: Occasionally Drug Use: None General Adult EDM: Chief Complaint: CHEST PAIN HPI: HPI: 49-year-old female presents with chest pain. The patient was at the [facility] with her daughter when she started to have a choking episode on 7 that she had. While she was coughing, she developed a central chest pain and shortness of breath. After the coughing stopped, she continued to feel mildly short of breath and had a chest pressure that she describes as moderate. This pain persisted. The patient went to the restroom and continued to feel poorly. When she came out her daughters told her that she looked pale. Patient was driving home and still was not feeling well with continued chest pressure so she decided come to the ER for evaluation. Her pain has improved at this time and is now 1 or 2 out of 10. She feels short of breath with exertion like walking across the room. Review of Systems: Review of Systems: Constitutional: Denies fever or chills Eyes: Denies change in visual acuity HENT: Denies nasal congestion or sore throat Respiratory: Shortness of breath Cardiovascular: Chest pain GI: Denies abdominal pain, nausea, vomiting, bloody stools or diarrhea : Denies dysuria Musculoskeletal: Denies back pain or joint pain Integument: Denies rash Neurologic: Denies headache, focal weakness or sensory changes Endocrine: Denies polyuria or polydipsia Lymphatic: Denies swollen glands Psychiatric: Denies depression or anxiety Allergies: Allergies: Allergies Coded Allergies Type Severity Reaction Last Updated Verified No Known Drug Allergies 05/05/19 No Physical Exam: PE: Constitutional: Well developed, well nourished, obese, no acute distress, non- toxic appearance. [] HENT: Normocephalic, atraumatic, bilateral external ears normal, oropharynx moist, no oral exudates, nose normal. [] Eyes: PERRLA, EOMI, conjunctiva normal, no discharge. [] Neck: Normal range of motion, no tenderness, supple, no stridor. [] Cardiovascular: Heart rate 108, regular rhythm, no murmur [] Lungs & Thorax: Bilateral breath sounds clear to auscultation [] Abdomen: Bowel sounds normal, soft, no tenderness, no masses, no pulsatile masses. [] Skin: Warm, dry, no erythema, no rash. [] Back: No tenderness, no CVA tenderness. [] Extremities: No tenderness, no cyanosis, no clubbing, ROM intact, no edema. [] Neurologic: Alert and oriented X 3, normal motor function, normal sensory function, no focal deficits noted. [] Psychologic: Affect normal, judgement normal, mood anxious. [] EKG: EKG: Sinus tachycardia, rate 108, normal axis, no ST elevation or depression. [] Radiology/Procedures: Radiology/Procedures: [] Impressions: EXAMINATION: CHEST AP ONLY CLINICAL HISTORY: Chest pain EXAM DATE/TIME: 07/05/2020 3:48 PM COMPARISON: None FINDINGS: Lines, Tubes, and Devices: None. Cardiomediastinal Silhouette: Within normal limits. Lungs and Pleura: No evidence of focal airspace consolidation or pleural effusion. Pulmonary vasculature unremarkable. Bones and Soft Tissues: No acute osseous abnormality. IMPRESSION: No evidence of acute cardiopulmonary abnormality. Electronically signed by: Nehemias Pisano DO (07/05/2020 4:49 PM) [id number] DICTATED AND SIGNED BY: NEHEMIAS PISANO DO DATE: 07/05/20 1649 CC: FACUNDO PERRIN DO; ALESSANDRA CHAVEZ ~ Heart Score: HEART Score for Chest Pain: HEART Score for Chest Pain Response (Comments) Value History Slighlty/Non-Suspicious 0 ECG Normal 0 Age >45 - < 65 1 Risk Factors 1 or 2 Risk Factors 1 Total 2 Risk Factors: Risk Factors: DM, Current or recent (<one month) smoker, HTN, HLP, family history of CAD, obesity. Risk Scores: Score 0 - 3: 2.5% MACE over next 6 weeks - Discharge Home Score 4 - 6: 20.3% MACE over next 6 weeks - Admit for Clinical Observation Score 7 - 10: 72.7% MACE over next 6 weeks - Early Invasive Strategies Course & Med Decision Making: Course & Med Decision Making Pertinent Labs and Imaging studies reviewed. (See chart for details) The patient's EKG is unremarkable. Her troponin is negative. Her urinalysis is negative for infection. Her other labs are unremarkable. Her chest x-ray is negative for acute findings. Her heart score is a 2. She is feeling a bit better at this time, just tired. She is stable for discharge at this time. [] Jorgeon Disclaimer: Dragon Disclaimer: This electronic medical record was generated, in whole or in part, using a voice recognition dictation system. Departure Departure: Impression: Primary Impression: Chest pain Qualified Codes: R07.9 - Chest pain, unspecified Disposition: 01 DC HOME SELF CARE/HOMELESS Condition: STABLE Referrals: ALESSANDRA CHAVEZ (PCP) Patient Instructions: Chest Pain (Nonspecific), [id number] FACUNDO PERRIN DO Jul 05, 2020 16:17
[2020-07-05 16:31] LABS: BARBITURATES NEG (NEG); BENZODIAZEPINES NEG (NEG); BILIRUBIN,URINE NEG (NEG); CANNABINOIDS NEG (NEG); CLARITY,URINE CLEAR; COCAINE NEG (NEG); COLOR,URINE YELLOW; GLUCOSE,URINE NEG (NEG); METHADONE NEG (NEG); OPIATES NEG (NEG); PHENCYCLIDINE NEG (NEG)
[2020-07-05 16:32] LABS: BACTERIA,URINE 0 /HPF (0-FEW); NITRITE,URINE NEG (NEG); RBC,URINE 0 /HPF (0-2); SQUAMOUS EPITHELIAL CELL,UR MOD /LPF; UROBILINOGEN,URINE 0.2 mg/dL (0.2 mg/dL); WBC,URINE 0 /HPF (0-4)
[2020-07-05 16:33] LABS: AMPHETAMINE/METHAMPHETAMINE NEG (NEG)
[2020-07-05 16:33] LABS: BASO % 0 % (0-3); EOS # 0.2 x10^3/uL (0.0-0.7); EOS % 3 % (0-3); HEMATOCRIT 42.2 % (36.0-47.0); HEMOGLOBIN 14.2 g/dL (12.0-15.5); LYMPH % 30 % (24-48); MEAN CORPUSCULAR HEMOGLOBIN 30 pg (25-35); MEAN CORPUSCULAR HGB CONC 34 g/dL (31-37); MEAN CORPUSCULAR VOLUME 90 fL (79-100); MONO # 0.5 x10^3/uL (0.0-1.1); MONO % 7 % (0-9); NEUT % 60 % (31-73); PLATELET COUNT 282 x10^3/uL (140-400); RED CELL DISTRIBUTION WIDTH 12.4 % (11.5-14.5); WHITE BLOOD COUNT 6.7 x10^3/uL (4.0-11.0)
[2020-07-05 16:40] LABS: CALCIUM 10.9 mg/dL (8.5-10.1); CREATININE 1.1 mg/dL (0.6-1.0); POTASSIUM 3.7 mmol/L (3.5-5.1)
[2020-07-05 16:46] LABS: ALBUMIN 4.6 g/dL (3.4-5.0); ALBUMIN/GLOBULIN RATIO 1.3 (1.0-1.7); TOTAL BILIRUBIN 0.5 mg/dL (0.2-1.0); TOTAL PROTEIN 8.1 g/dL (6.4-8.2)
--- NOTE | 2020-07-05 16:52 | RAD ---
EXAMINATION: CHEST AP ONLY CLINICAL HISTORY: Chest pain EXAM DATE/TIME: 07/05/2020 3:48 PM COMPARISON: None FINDINGS: Lines, Tubes, and Devices: None. Cardiomediastinal Silhouette: Within normal limits. Lungs and Pleura: No evidence of focal airspace consolidation or pleural effusion. Pulmonary vasculature unremarkable. Bones and Soft Tissues: No acute osseous abnormality. IMPRESSION: No evidence of acute cardiopulmonary abnormality. Electronically signed by: Nehemias Roman DO (07/05/2020 4:49 PM) [id number]
[2020-07-05 17:18] VITALS: BP 118/66
== END 2020-07-05 17:37 | disposition home or self-care (01) ==
LOC: ER 15:20
DX: R07.89 Other chest pain (principal); R06.02 Shortness of breath; R05 Cough; E78.00 Pure hypercholesterolemia, unspecified; I10 Essential (primary) hypertension; Z86.73 Personal history of transient ischemic attack (TIA), and cerebral infarction without residual deficits; Z86.2 Personal history of diseases of the blood and blood-forming organs and certain disorders involving the immune mechanism; Z87.440 Personal history of urinary (tract) infections
CPT/HCPCS: 36415; 71045; 80053; 80307; 81001; 84484; 85025; 93005; 99285